=== PATIENT | male | born 1980 | race Caucasian/White ===

== ENCOUNTER 2022-04-14 22:55 | Emergency (ER) | payer OTHER ==
[~2022-04-14] VITALS: Ht 175.3 cm; Wt 70.3 kg
[2022-04-15] MEDS ORDERED: DICLOFENAC SODI75 MG PO (00:57)
== END 2022-04-15 01:01 | disposition home or self-care (01) ==
LOC: ER 22:55
DX: M79.671 Pain in right foot (principal)

== ENCOUNTER 2025-04-09 17:19 | Emergency (ER) | payer OTHER ==
[~2025-04-09] VITALS: Ht 162.6 cm; Wt 67.6 kg
[~2025-04-09 17:19] MED LIST: DICLOFENAC SODI75 MG PO
[2025-04-09] MEDS ORDERED: KETOROLAC TROMETHAMINE 30 MG VIAL IM ONE (19:30)
== END 2025-04-09 19:44 ==
LOC: ER 18:18
DX: R10.32 Left lower quadrant pain (principal); R10.2 Pelvic and perineal pain